=== PATIENT | male | born 1990 ===

== ENCOUNTER 2018-06-19 02:29 | Emergency (ER) | payer BC ==
[2018-06-19 02:49] VITALS: RESP 18; TEMP 98.9; O2SAT 98
[2018-06-19] MEDS ORDERED: Tdap Vaccine 0.5 ml Vial (10-64 yrs) IM ONE ×2 (03:05→04:03)
[2018-06-19] MEDS ORDERED: Lidocaine/Epi 1% 1:100000 20 ML IJ STA (03:12)
[2018-06-19] MEDS ORDERED: Lidocaine 1% w Epi 1:100,000 Inj ONE (03:18)
[2018-06-19] MEDS ORDERED: Povidone Iodine Topical 10% Sol ONE (03:19)
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
[2018-06-19 05:29] VITALS: BP 111/71; PULSE 104
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
== END 2018-06-19 05:20 | disposition home or self-care (01) ==
LOC: H.ER 02:29
DX: F10.129 Alcohol abuse with intoxication, unspecified (principal); S09.90XA Unspecified injury of head, initial encounter; S01.81XA Laceration without foreign body of other part of head, initial encounter; S01.112A Laceration without foreign body of left eyelid and periocular area, initial encounter; S01.111A Laceration without foreign body of right eyelid and periocular area, initial encounter; Y04.0XXA Assault by unarmed brawl or fight, initial encounter; Y92.89 Other specified places as the place of occurrence of the external cause; K21.9 Gastro-esophageal reflux disease without esophagitis